=== PATIENT | male | born 1965 | race Caucasian/White ===

== ENCOUNTER 2018-01-16 07:55 | Outpatient (CLI) | payer OTHER | END 2018-01-16 07:58 | disposition home or self-care (01) | LOC: SONOGRAMA 07:55 | DX: E04.1 Nontoxic single thyroid nodule (principal) ==

== ENCOUNTER 2022-02-22 08:15 | Inpatient (IN) | payer OTHER ==
[~2022-02-22] VITALS: Ht 180.3 cm; Wt 113.4 kg
[2022-02-22] MEDS ORDERED: NORVASC5 MG PO (09:12)
== END 2022-03-08 16:05 | DRG 470 ==
LOC: SURH 03-01 07:00 → O/R 03-06 06:38 → SURH 03-06 08:15 → SURG 03-06 16:34 → SURH 03-06 18:00 → SURG 03-08 16:05
PROVIDERS: ADMIT Orthopaedic Surgery; ATTEND Orthopaedic Surgery
PROC: 0SRD0J9 Replacement of Left Knee Joint with Synthetic Substitute, Cemented, Open Approach (ICD-10-PCS; principal; 2022-03-06 18:00)
DX: M17.12 Unilateral primary osteoarthritis, left knee (principal); D62 Acute posthemorrhagic anemia; M22.12 Recurrent subluxation of patella, left knee; I10 Essential (primary) hypertension; D51.0 Vitamin B12 deficiency anemia due to intrinsic factor deficiency; E06.3 Autoimmune thyroiditis; Z20.822 Contact with and (suspected) exposure to COVID-19

== ENCOUNTER → 2022-03-05 13:15 | Outpatient (CLI) | payer OTHER ==
[~2022-03-05 13:15] MED LIST: NORVASC5 MG PO
== END | disposition home or self-care (01) ==
LOC: LAB 13:15
PROVIDERS: ATTEND Orthopaedic Surgery
DX: Z20.822 Contact with and (suspected) exposure to COVID-19 (principal)

== ENCOUNTER 2024-04-21 09:25 | Outpatient (CLI) | payer OTHER ==
[2024-04-21 10:19] LABS: HEMATOCRIT 42.1 % (39.0-48.0); HEMOGLOBIN 14.2 g/dL (13-16.00); MEAN CELL VOLUME 91.9 fL (80.0-100.00); MEAN CORPUSCULAR HGB CONC 33.8 g/dl (32.0-36.0); PLATELET COUNT 187 K/uL (150-450); RED BLOOD COUNT 4.59 M/uL (4.00-6.00); RED CELL DISTRIBUTION WIDTH 13.8 % (11.5-14.5)
[2024-04-21 11:31] LABS: MANUAL PLATELET COUNT 230
[2024-04-21 11:32] LABS: PLATELET ESTIMATE NORMAL (NORMAL)
[2024-04-21 11:51] LABS: BILIRUBIN TOTAL 0.5 mg/dL (0.3-1.2); CALCIUM 9.3 mg/dL (8.5-10.1); CREATININE SERUM 0.89 mg/dL (0.70-1.30); GFR 88.1; GLOBULINA 3.6 G/DL (2.4-3.5); POTASSIUM 4.52 mEq/L (3.5-5.1); TOTAL PROTEIN 7.6 gm/dL (6.4-8.2)
[2024-04-21 14:24] LABS: FOLIC ACID 19.19 ng/ml (4.78-20)
[2024-04-21 14:41] LABS: FERRITIN 535.1 NG/ML (26-388); PROSTATIC SPECIFIC ANTIGEN 1.1 NG/ML (0.010-4.00); TSH 1.84 uIU/mL (0.358-3.74)
[2024-04-23 17:06] LABS: PARIETAL CELL ANTIBODIES 119.4 Units (0.0-20.0)
== END 2024-04-21 09:30 | disposition home or self-care (01) ==
LOC: LAB 09:25
PROVIDERS: ATTEND Internal Medicine Hematology & Oncology
DX: D69.59 Other secondary thrombocytopenia (principal); D51.3 Other dietary vitamin B12 deficiency anemia; D51.1 Vitamin B12 deficiency anemia due to selective vitamin B12 malabsorption with proteinuria; E06.3 Autoimmune thyroiditis; I10 Essential (primary) hypertension; E04.2 Nontoxic multinodular goiter; R97.0 Elevated carcinoembryonic antigen [CEA]; E03.8 Other specified hypothyroidism; K76.89 Other specified diseases of liver; R74.02 Elevation of levels of lactic acid dehydrogenase [LDH]